=== PATIENT | male | born 1980 | race Caucasian/White ===

== ENCOUNTER → 2016-07-31 | Day surgery (SDC) | payer BC ==
[2016-07-17 15:21] VITALS: Ht 193 cm; Wt 95.5 kg
[~2016-07-31] VITALS: Ht 193 cm; Wt 95.5 kg
[~2016-07-31] MED LIST: AMPH20CA3 PO; ATROPINE SULFATE 0.1 MG/ML 5ML SYR IV PRN; EpHEDrine SULFATE INJ 50 MG/ML AMP IV PRN; FENTANYL CITRATE INJ 50 MCG/1 ML 2 ML VIAL ONE; IBUP-1050 PO; LACTATED RINGER'S 1000ML 1,000 ML IV SCH; LIDOCAINE HCL 1% 20 ML VIAL ONE; MIDAZOLAM HCL 1 MG/ML 2ML VIAL ONE
--- NOTE | 2016-07-31 09:31 | History & Physical Bridge - [place] ---
H&P Re-Evaluation Bridge Note: I have examined the patient, reviewed the History & Physical and in the interval since the performance of the History & Physical I have noted the following changes of clinical significance: No changes noted
--- NOTE | 2016-07-31 10:36 | Discharge Instructions ---
Discharge Instructions Visit Reason for Visit: Sacroiliitis Discharge Discharge Diagnosis / Problem: low back pain Discharge Goals Goal(s): Decrease discomfort, Improve function Activity Recommendations Activity Limitations: resume your previous activity Anesthesia . Post Anesthesia Instructions: If you have had General Anesthesia or IV Sedation: * Do not drive today. * Resume driving when surgeon permits. * Do not make important decisions or sign legal documents today. * Call surgeon for: 1. Temperature elevations greater than 101 degrees F. 2. Uncontrollable pain. 3. Excessive bleeding. 4. Persistent nausea and vomiting. 5. Medication intolerance (nausea, vomiting or rash). * For nausea and vomiting use only clear liquids such as: tea, soda, bouillon until nausea subsides, then gradually increase diet as tolerated. * If you have any concerns or questions, call your surgeon's office. If physician is unavailable and it is an emergency, call 911 or go to the nearest emergency room. . Diet Recommendations Recommended Home Diet: resume previous diet Procedures Procedures Performed: Right Cooled Sacrioiliac Joint Denervation Pending Studies Studies pending at discharge: no Medical Emergencies . Who to Call and When: Medical Emergencies: If at any time you feel your situation is an emergency, please call 911 immediately. . Non-Emergent Contact Non-Emergency issues call your: Specialist . . "Provider Documentation" section prepared by Jj Graham.
[2016-07-31 10:37] VITALS: TEMP 36.7
--- NOTE | 2016-07-31 10:39 | Anesthesia Progress Nt - [facility] ---
Anesthesia Post Op Note Date & Time Jul 31, 2016 at 10:39 Vital Signs Pain Intensity: 4 Vital Signs Past 12 Hours Date Time Temp Pulse Resp B/P Pulse Ox O2 Delivery O2 Flow Rate FiO2 07/31/16 08:29 36.9 81 18 128/77 96 Room Air Notes Mental Status: alert / awake / arousable, participated in evaluation Pt Amnestic to Procedure: Yes Nausea / Vomiting: adequately controlled Pain: adequately controlled Airway Patency, RR, SpO2: stable & adequate BP & HR: stable & adequate Hydration State: stable & adequate Anesthetic Complications: no major complications apparent
[2016-07-31 10:54] VITALS: BP 114/76; PULSE 66; O2SAT 98
--- NOTE | 2016-07-31 11:25 | OPERATIVE REPORT ---
DATE OF OPERATION: 07/31/2016 PREOPERATIVE DIAGNOSIS: Right sacroiliitis. POSTOPERATIVE DIAGNOSIS: Same. PROCEDURE: Right sacroiliac cooled radiofrequency denervation. SURGEON: Dr. Jj Graham. INDICATIONS: The patient is a 36-year-old white male that underwent sacroiliac blocks, successful ones x2 to determine the generators of this pain. He had 80-100% relief following the blocks. He presents today for cooled denervation. PHYSICAL EXAMINATION: Pleasant male seated comfortably. He has point tender to palpation of his right SI joint, worse with extension. He has normal motor and sensory examination. Positive Alirio maneuver. CONSENT: Verbal and written consent was obtained from the patient. Risks and benefits were reviewed. Risks include but are not limited to abscess, allergic reaction and denervation. The patient wishes to proceed. PROCEDURE: The patient was taken back into OR #2 of the [facility] where he was maintained in a prone position. Backside was cleansed with Betadine x3 and a dry sterile dressing was applied. He had conscious sedation throughout the procedure but was able to converse freely and appropriately. The right sacral ala, S1 foramen were then fluoroscopically identified. Overlying skin was anesthetized with 3 mL of lidocaine 1% with a 25 gauge 1.5-inch needle. An additional 1 mL was used to numb the sacral ala area which was also tender. A denervation needle was then placed through the skin contacting first target point at the sacral ala on the right side. There were a total each target points done and each had 2 minutes and 30 seconds of cooled denervation first done in the sacral ala, then the superior lateral aspect of the S1 foramen, the lateral aspect of the S1 foramen, the inferior lateral aspect of the inferior S1 foramen, the superior lateral aspect of the S2 foramen, the lateral aspect of the S2 foramen, the inferior lateral aspect of the S2 foramen and the superior lateral aspect of the S3 foramen. The procedure was well tolerated. DISPOSITION: 1. He is taken out into the discharge recovery area where he will be discharged home once discharge criteria have been met. 2. Follow up in the [facility] office in 2-4 weeks. I attest to the content of the Intraoperative Record and any orders documented therein. Any exceptio ns are noted below.
== END | disposition home or self-care (01) ==
LOC: X.SURG 08:11
PROVIDERS: ATTEND Physical Medicine & Rehabilitation
DX: M46.1 Sacroiliitis, not elsewhere classified (principal)

== ENCOUNTER → 2017-08-04 | Day surgery (SDC) | payer BC ==
[2017-06-28 15:14] VITALS: Ht 193 cm; Wt 104.5 kg
[~2017-08-04] VITALS: Ht 193 cm; Wt 104.5 kg
[~2017-08-04] MED LIST changes: +BUPIVACAINE 0.25% 2.5MG/ML PF 10 ML VIAL ONE; +LISD60CA PO
--- NOTE | 2017-08-04 08:57 | [facility] Post Operative Brief Note ---
Immediate Operative Summary Operative Date Aug 04, 2017. Pre-Operative Diagnosis Sacroilitis Post-Operative Diagnosis same as preop Procedure(s) Performed Right Sacroiliac Joint Cooled Radio Frequency Denervation Surgeon Dr. Graham Horticultural Specialty Grower Surgeon(s) none Estimated Blood Loss <0.5ml Findings Consistent with Post-Op Diagnosis Specimens none Drains None Anesthesia Type MAC Complication(s) none Disposition Disposition:
--- NOTE | 2017-08-04 08:58 | Discharge Instructions ---
Discharge Instructions Date of Service Aug 04, 2017. Visit Reason for Visit: Sacroiliitis Discharge Discharge Diagnosis / Problem: low back pain Discharge Goals Goal(s): Decrease discomfort, Improve function Activity Recommendations Activity Limitations: resume your previous activity Anesthesia . Post Anesthesia Instructions: If you have had General Anesthesia or IV Sedation: * Do not drive today. * Resume driving when surgeon permits. * Do not make important decisions or sign legal documents today. * Call surgeon for: 1. Temperature elevations greater than 101 degrees F. 2. Uncontrollable pain. 3. Excessive bleeding. 4. Persistent nausea and vomiting. 5. Medication intolerance (nausea, vomiting or rash). * For nausea and vomiting use only clear liquids such as: tea, soda, bouillon until nausea subsides, then gradually increase diet as tolerated. * If you have any concerns or questions, call your surgeon's office. If physician is unavailable and it is an emergency, call 911 or go to the nearest emergency room. . Diet Recommendations Recommended Home Diet: resume previous diet Procedures Procedures Performed: Right Sacroiliac Joint Cooled Radio Frequency Denervation Pending Studies Studies pending at discharge: no Medical Emergencies . Who to Call and When: Medical Emergencies: If at any time you feel your situation is an emergency, please call 911 immediately. . Non-Emergent Contact Non-Emergency issues call your: Specialist . . "Provider Documentation" section prepared by Jj Graham. .
[2017-08-04 08:59] VITALS: TEMP 36.5
--- NOTE | 2017-08-04 09:01 | Anesthesia Progress Nt - [facility] ---
Anesthesia Post Op Note Date & Time Aug 04, 2017 at 09:00 Vital Signs Pain Intensity: 7 Vital Signs Past 12 Hours Date Time Temp Pulse Resp B/P (MAP) Pulse Ox O2 Delivery O2 Flow Rate FiO2 08/04/17 07:15 37.2 74 16 116/77 (90) 97 Room Air Notes Mental Status: alert / awake / arousable, participated in evaluation Pt Amnestic to Procedure: Yes Nausea / Vomiting: adequately controlled Pain: adequately controlled Airway Patency, RR, SpO2: stable & adequate BP & HR: stable & adequate Hydration State: stable & adequate Anesthetic Complications: no major complications apparent
[2017-08-04 09:23] VITALS: BP 124/76; PULSE 85; O2SAT 95
--- NOTE | 2017-08-04 09:27 | OPERATIVE REPORT ---
DATE OF OPERATION: 08/04/2017 CHIEF COMPLAINT: Right sacroiliitis. HISTORY OF PRESENT ILLNESS: The patient is a 37-year-old male who presents today for denervation of the right SI joint. He had this done nearly a year ago in August and reported up until about a month or two ago he had done fantastic. The pain has been returning and is starting to become problematic again, localizing it to the right SI joint, uncomfortable at night with turning and twisting. PHYSICAL EXAMINATION: Pleasant male. He has a positive test to palpation of the SI joint, DANK maneuver. No focal or motor deficits. CONSENT: Verbal and written consent was obtained from the patient. Risks and benefits were reviewed. Risks include but are not limited to abscess, allergic reaction, nerve denervation, and he wishes to proceed. PROCEDURE: The patient was taken back into OR #1 of the [facility]. He had conscious sedation throughout the procedure but was able to converse freely, maintained in a prone position. Backside was cleansed with Betadine x3 and a dry sterile dressing was applied. Fluoroscope was used to identify the sacrum and the overlying skin lateral to S1 was anesthetized with 5 mL of lidocaine 1% with a 25-gauge 1.5-inch needle. A 22-gauge cooling needle was then placed, initially in the right sacral ala and then denervated for 2 minutes and 30 seconds, cooled denervation was done at each site and the sites included after the right sacral ala, the right lateral S1 foramen, the superior lateral S1 foramen, the lateral S1 foramen, the inferior lateral S1 foramen and the superior lateral S2 foramen, and then additional skin lateral to the S2 foramen was anesthetized with 3 mL of lidocaine 1% with a 25-gauge 1.5-inch needle. Another Madison needle was placed and denervation was done 2 minutes and 30 seconds at the following sites: S2 lateral, S2 lateral inferior and S3 superior. Procedure was well tolerated. DISPOSITION: He was taken out into the discharge recovery area where he will be discharged home once discharge criteria have been met and will follow up in the office in 4 weeks' time. I attest to the content of the Intraoperative Record and any orders documented therein. Any exception s are noted below.
== END | disposition home or self-care (01) ==
LOC: X.SURG 07:08
PROVIDERS: ATTEND Physical Medicine & Rehabilitation
DX: M46.1 Sacroiliitis, not elsewhere classified (principal); F90.9 Attention-deficit hyperactivity disorder, unspecified type; M19.90 Unspecified osteoarthritis, unspecified site; Z90.89 Acquired absence of other organs; Z98.818 Other dental procedure status; Z98.890 Other specified postprocedural states; Z82.49 Family history of ischemic heart disease and other diseases of the circulatory system; Z80.3 Family history of malignant neoplasm of breast; Z83.49 Family history of other endocrine, nutritional and metabolic diseases

== ENCOUNTER → 2017-11-08 | Day surgery (SDC) | payer BC ==
[2017-10-27 07:55] VITALS: Ht 193 cm; Wt 104.5 kg
[~2017-11-08] VITALS: Ht 193 cm; Wt 104.5 kg
[~2017-11-08] MED LIST changes: -AMPH20CA3 PO; -ATROPINE SULFATE 0.1 MG/ML 5ML SYR IV PRN; -EpHEDrine SULFATE INJ 50 MG/ML AMP IV PRN; -FENTANYL CITRATE INJ 50 MCG/1 ML 2 ML VIAL ONE; +IOPAMIDOL INJ 61% 15 ML VIAL ONE; -LACTATED RINGER'S 1000ML 1,000 ML IV SCH; -LIDOCAINE HCL 1% 20 ML VIAL ONE; +LIDOCAINE HCL 1% MPF 5 ML VIAL ONE; -MIDAZOLAM HCL 1 MG/ML 2ML VIAL ONE
--- NOTE | 2017-11-08 15:10 | [facility] Post Operative Brief Note ---
Immediate Operative Summary Operative Date November 08, 2017. Pre-Operative Diagnosis Right sacroiliitis Post-Operative Diagnosis Same Procedure(s) Performed Right Sacroiliac Joint Injection Surgeon Dr Jj Graham Procurement Professional Logistics Surgeon(s) None Estimated Blood Loss 0 Findings Consistent with Post-Op Diagnosis Specimens NA Drains None Anesthesia Type Local Complication(s) none Disposition Disposition:
--- NOTE | 2017-11-08 15:12 | Discharge Instructions ---
Discharge Instructions Date of Service November 08, 2017. Visit Reason for Visit: Sacroiliitis Discharge Discharge Diagnosis / Problem: low back pain Discharge Goals Goal(s): Decrease discomfort, Improve function Activity Recommendations Activity Limitations: resume your previous activity Anesthesia . Post Anesthesia Instructions: If you have had General Anesthesia or IV Sedation: * Do not drive today. * Resume driving when surgeon permits. * Do not make important decisions or sign legal documents today. * Call surgeon for: 1. Temperature elevations greater than 101 degrees F. 2. Uncontrollable pain. 3. Excessive bleeding. 4. Persistent nausea and vomiting. 5. Medication intolerance (nausea, vomiting or rash). * For nausea and vomiting use only clear liquids such as: tea, soda, bouillon until nausea subsides, then gradually increase diet as tolerated. * If you have any concerns or questions, call your surgeon's office. If physician is unavailable and it is an emergency, call 911 or go to the nearest emergency room. . Diet Recommendations Recommended Home Diet: resume previous diet Procedures Procedures Performed: Right Sacroiliac Joint Injection Pending Studies Studies pending at discharge: no Medical Emergencies . Who to Call and When: Medical Emergencies: If at any time you feel your situation is an emergency, please call 911 immediately. . Non-Emergent Contact Non-Emergency issues call your: Specialist . . "Provider Documentation" section prepared by Jj Graham. .
[2017-11-08 15:13] VITALS: TEMP 37.4
[2017-11-08 15:36] VITALS: BP 130/76; PULSE 85; O2SAT 96
--- NOTE | 2017-11-08 16:47 | OPERATIVE REPORT ---
DATE OF OPERATION: 11/08/2017 PREOPERATIVE DIAGNOSIS: Right sacroiliitis. POSTOPERATIVE DIAGNOSIS: Right sacroiliitis. PROCEDURE: Right sacroiliac joint injection under fluoroscopic guidance. INDICATIONS: Patient is a 37-year-old white male who has pain in the SI joint. He has responded favorably to a cooled denervation initially, most recent denervation was minimally effective. He has had results with injections in the SI joint. He is describing significant pain that is anywhere from 3-8/10 on a constant basis. He presents today for an SI joint injection to provide him with some relief. PHYSICAL EXAMINATION: Pleasant male seated comfortably with point tenderness to palpation of his right SI joint. It is reproducible with compression of the joint, extension of the joint and direct palpation. Lower extremity strength is unchanged. CONSENT: Verbal and written consent was obtained from the patient. Risks and benefits were reviewed. Risks include but are not limited to abscess and allergic reaction. Patient wishes to proceed. DETAILS OF PROCEDURE: Patient was taken back into the special procedures room of the [facility] where he was maintained in a prone position. Backside was cleansed with Betadine x3 and a dry sterile dressing was applied. Fluoroscope was used to identify the right SI joint. The overlying skin was anesthetized with 3 mL of lidocaine 1% with a 25-gauge 1.5-inch needle. A 25-gauge 3.5-inch spinal needle was then directed under fluoroscopic guidance into the joint. It was a little lateral and was injected with a little Isovue-300 contrast 0.25 mL and was more and more medial into the joint and injected with additional 0.25 mL of Isovue-300 showing intra-articular placement. He then underwent injection after negative aspiration of 40 mg Depo-Medrol and 1.5 mL of bupivacaine 0.25%. Injection was well tolerated. DISPOSITION: Patient is taken out into the discharge recovery area where he will be discharged home once discharge criteria are met. Follow up in the [facility] office in 4 weeks' time. I attest to the content of the Intraoperative Record and any orders documented therein. Any exception s are noted below.
== END ==
LOC: X.SURG 14:01
PROVIDERS: ATTEND Physical Medicine & Rehabilitation
DX: M46.1 Sacroiliitis, not elsewhere classified (principal)

== ENCOUNTER 2017-11-14 13:52 | Emergency (ER) | payer BC ==
[~2017-11-14] VITALS: Ht 193 cm; Wt 104.3 kg
[~2017-11-14 13:52] MED LIST changes: -BUPIVACAINE 0.25% 2.5MG/ML PF 10 ML VIAL ONE; -IOPAMIDOL INJ 61% 15 ML VIAL ONE; -LIDOCAINE HCL 1% MPF 5 ML VIAL ONE
[2017-11-14 13:58] VITALS: TEMP 36.5; Ht 193 cm; Wt 104.3 kg
[2017-11-14] MEDS ORDERED: GADAVIST IV PRN (16:00)
--- NOTE | 2017-11-14 16:09 | EMERGENCY ROOM VISIT NOTE ---
History First contact with patient: 14:26 Chief Complaint: HEARING LOSS Stated Complaint: TINNITUS IN LEFT EAR, SUDDEN DECREASE OF HEARING History of Present Illness The patient is a 37 year old male who presents to the Emergency Room with complaints of left-sided hearing loss that started last night. The patient typically suffers from tinnitus. This has been ongoing. The patient's tinnitus got worse in the left side last night. He reports difficulty hearing the TV. This morning when he awoke, he reports decreased hearing in the left ear. He denies any nausea, pain or dizziness. The patient is concerned because he was having difficulty hearing conversations on the TV. He is also nervous because his father had sudden hearing loss and is deaf in one ear. No recent illnesses. No fever or chills. No new medications. Review of Systems 10 system review performed and negative unless noted in HPI or below Past Medical/Surgical History Otherwise healthy Social History Smoking Status: Never Smoker Alcohol Use: occasionally Occupation Status: employed Current/Historical Medications Scheduled Lisdexamfetamine Dimesylate (Vyvanse), 1 CAP PO QAM Scheduled PRN Ibuprofen (Advil), 200-600 MG PO Q4H PRN for Pain Physical Exam Vital Signs Date Time Temp Pulse Resp B/P (MAP) Pulse Ox O2 Delivery O2 Flow Rate FiO2 11/14/17 17:26 67 16 134/76 98 11/14/17 16:14 83 16 121/72 97 Room Air 11/14/17 13:58 36.5 90 20 114/68 96 Room Air Physical Exam VITALS: Vitals are noted on the nurse's note and reviewed by myself. Vital signs stable. GENERAL: 37-year-old male, in no acute distress, nondiaphoretic, well-developed well-nourished. SKIN: The skin was without rashes, erythema, edema, or bruising. HEAD: Normocephalic atraumatic. EARS: External auditory canals clear, tympanic membranes pearly bustamante without erythema bilaterally. There is a small serous effusion noted on the left. No bulging or erythema. No mastoid tenderness. No tragal tenderness. Hearing slightly decreased to soft whispering in the left ear EYES: Conjunctivae without injection, sclerae without icterus. Extraocular movements intact. NOSE: Patent, turbinates without inflammation or discharge. No sinus tenderness. MOUTH: Mucous membranes moist. Tonsils are not enlarged. Pharynx without erythema or exudate. Uvula midline. Airway patent. Tongue does not deviate. NECK: Supple without nuchal rigidity. No lymphadenopathy. Cervical spine is nontender. No JVD. MUSCULOSKELETAL: Strength 5/5 throughout. NEURO: Patient was alert and oriented to person place and time. Cranial nerves grossly intact. Normal sensation to touch. No focal neurological deficits. HUNT test: Hearing lateralizes to the left side Medical Decision & Procedures ER Provider Diagnostic Interpretation: MRI brain with contrast IMPRESSION: 1. No acute intracranial abnormality. 2. No abnormal enhancement or masses within the bilateral internal auditory canals. Electronically signed by: Junior Magana M.D. 11/14/2017 4:42 PM Dictated Date/Time: 11/14/2017 4:33 PM The status of this report is Signed. Draft = Not yet reviewed or approved by Radiologist. Signed = Reviewed and approved by Radiologist. <AttendingPhy></AttendingPhy> <FamilyPhy></FamilyPhy> <PrimaryPhy>Adryan Beck M.D.([place])</PrimaryPhy> <UnitNumber>[id number]</UnitNumber> < VisitNumber>[id number]</VisitNumber> <PatientName>LEEANN ADDISON</PatientName> <DateOfBirth>1980</DateOfBirth> <Location>[facility]</Location> <ServiceDate></ServiceDate> <MNE>ESINDI</MNE> <OrderingPhy>Mariya Carmichael PA-C</ OrderingPhy ED Course The patient was seen and examined The case was discussed with my supervising physician MRI was performed and reviewed The findings were discussed with the patient. He voiced understanding. He was comfortable being discharged home. Discharge instructions were reviewed, and he was discharged in good condition Medical Decision Differential diagnosis: Sensorineural hearing loss, conductive loss, infection, perforation This patient is a 37-year-old male that presents to the emergency department with left-sided hearing loss. On exam, he did have slightly decreased hearing noted in the left ear. He had a small serous effusion in that ear. TM was intact. It did not appear infected. When a Hunt test was performed, he lateralized towards the left ear, which likely means more of a conductive problem. Given his family history, I ordered an MRI. No acute findings were noted to explain the hearing loss. It is possible that the small serous effusion is affecting his hearing. I believe he is stable to be discharged home. He will be followed up with ENT as an outpatient. The patient was comfortable with this plan, and agrees to return with worsening symptoms. This chart was completed in part utilizing [employer] Speech Voice Recognition software. Attempts were made to minimize the grammatical errors, random word insertions, pronoun errors and incomplete sentences. Any formal questions or concerns about the content, text or information contained within the body of this dictation should be directly addressed to the provider for clarification. Impression Primary Impression: Left ear hearing loss Departure Information Dispostion Home / Self-Care Condition GOOD Referrals Adryan Beck M.D.([place]) (PCP) Claudia Bull M.D. Patient Instructions My [facility] Additional Instructions You have been evaluated in the emergency department for decreased hearing in the left ear. An MRI did not show any significant abnormalities. The etiology at this point is unclear Please call the ENT doctor first thing Wednesday morning for a follow-up appointment. If you have any difficulty, you may call back to the emergency department, and we can try to help you make the appointment. The number to the emergency department is [phone] Please do not hesitate to return to the emergency department for any new or concerning symptoms It was a pleasure participating in your care today
--- NOTE | 2017-11-14 16:43 | DIAGNOSTIC IMAGING REPORT ---
Brain and internal auditory canal MRI WITH AND WITHOUT CONTRAST HISTORY: sudden left sided hearing loss TECHNIQUE: Multiplanar multisequence MRI of the brain and internal auditory canals were performed both before and after the intravenous administration of contrast. COMPARISON STUDY: None. FINDINGS: There are no areas of restricted diffusion to suggest acute infarction. The midline structures are intact. The paranasal sinuses are clear. The mastoid air cells are clear. The ventricles and sulci are within normal limits for age. There is no mass, hematoma, midline shift. The major vascular flow-voids at the skull base are well maintained. Postcontrast sequences show no areas of abnormal enhancement. No masses or abnormal enhancement within the internal auditory canals. The left anterior inferior cerebellar artery is looped within the left internal auditory canal. However, this does not result in significant mass effect along the 7th cranial or eighth nerves. Therefore, this is of doubtful clinical significance. IMPRESSION: 1. No acute intracranial abnormality. 2. No abnormal enhancement or masses within the bilateral internal auditory canals. Electronically signed by: Junior Magana M.D. 11/14/2017 4:42 PM Dictated Date/Time: 11/14/2017 4:33 PM
[2017-11-14 17:26] VITALS: BP 134/76; PULSE 67; O2SAT 98
== END 2017-11-14 17:27 | disposition home or self-care (01) ==
LOC: C.EDB 13:54 → C.EDD 17:27
DX: H91.22 Sudden idiopathic hearing loss, left ear (principal); H93.19 Tinnitus, unspecified ear; Z82.2 Family history of deafness and hearing loss